=== PATIENT | female | born 1965 | race Caucasian/White ===

== ENCOUNTER 2017-06-13 09:45 | Inpatient (IN) | payer BC ==
[~2017-06-13] VITALS: Ht 182.9 cm; Wt 73.2 kg
[2017-06-13] VITALS (20 sets, daily range): BP systolic 98–115; BP diastolic 59–78; PULSE 69–86; RESP 11–20
[~2017-06-13 09:45] MED LIST: CEFAZOLIN 1 GM INJ ONE; LIDOCAINE 2% (SDV) 5 ML INJ ONE; ROCURONIUM 50 MG INJ ONE
[2017-06-13] MEDS ORDERED: FLUO40CA10 PO (10:14)
[2017-06-13] MEDS ORDERED: GABA300C16 PO (10:14)
[2017-06-13] MEDS ORDERED: GABA100C14 PO (10:15)
[2017-06-13] MEDS ORDERED: GELATIN SIZE 100 SPONGE ONE (11:40)
[2017-06-13] MEDS ORDERED: BUPIVACAINE 0.5%/EPI (SDV) 30 ML INJ ONE (11:40)
[2017-06-13] MEDS ORDERED: BUPIVACAINE 0.25% (MPF) 30 ML INJ ONE (11:40)
[2017-06-13] MEDS ORDERED: SURGIFOAM POWDER 1 GM KIT ONE (11:40)
[2017-06-13] MEDS ORDERED: THROMBIN 5000 UNIT VIAL ONE (11:41)
[2017-06-13] MEDS ORDERED: PROPOFOL 20 ML ONE (12:06)
[2017-06-13] MEDS ORDERED: ROCURONIUM 50 MG INJ ONE (12:07)
[2017-06-13] MEDS ORDERED: FENTAnyl 50 MCG/ML VIAL ONE (12:08)
--- NOTE | 2017-06-13 12:31 | HPN ---
Date/Time of Note Date/Time of Note DATE: 06/13/17 TIME: 12:31 Interval H&P Admission Note Pt. seen H&P reviewed: No system changes SUPRIYA WRAY PA-C Jun 13, 2017 12:31
[2017-06-13] MEDS ORDERED: DIPHENHYDRAMINE 50 MG INJ IV PRN ×2 (13:00→16:30)
[2017-06-13] MEDS: CEFAZOLIN 1 GM/50 ML (PMX) 50 ML IVPB SCH ×2 (13:00→21:05)
[2017-06-13] MEDS ORDERED: NALOXONE (0.4 MG/ML) INJ IV PRN (13:00)
[2017-06-13] MEDS ORDERED: ZOLPIDEM 5 MG TAB PO PRN (13:00)
[2017-06-13] MEDS ORDERED: CEPASTAT LOZENGE MT PRN (13:00)
[2017-06-13] MEDS ORDERED: AL HYDROX/MG HYDROX/SIMETH 30 ML CUP PO PRN (13:00)
[2017-06-13] MEDS ORDERED: BISACODYL 10 MG SUPP PR PRN (13:00)
[2017-06-13] MEDS ORDERED: HYDROmorphONE 0.5 MG/0.5 ML SYG IV PRN (13:00)
[2017-06-13] MEDS ORDERED: morphine 10 MG INJ ONE (13:02)
[2017-06-13] MEDS ORDERED: MIDAZOLAM 1 MG/ML 2 ML INJ ONE (13:20)
[2017-06-13] MEDS ORDERED: POLYMYXIN/BACITRACIN 1L IRRIG IRR ONE (13:31)
[2017-06-13] MEDS ORDERED: DEXAMETHASONE 4 MG/ML 1 ML INJ ONE (13:32)
[2017-06-13] MEDS ORDERED: THROMBIN 5000 UNIT VIAL TOP ONE (13:42)
[2017-06-13] MEDS ORDERED: POLYMYXIN/BACITRACIN 1L IRRIG ONE (15:09)
[2017-06-13] MEDS ORDERED: CA CHLORIDE 10% 10 ML SYRINGE ONE (15:33)
[2017-06-13] MEDS ORDERED: ONDANSETRON 4 MG INJ ONE (15:36)
--- NOTE | 2017-06-13 16:09 | SIPON ---
Date/Time of Note Date/Time of Note DATE: 06/13/17 TIME: 16:08 Operative Report Preoperative Diagnosis L4-5 listhesis and stenosis Postoperative Diagnosis L4-5 listhesis and stenosis Operation/Procedure Performed L4-5 fusion Surgeon see signature line fire assistant Kemal Anesthesia: general Estimated blood loss: 10 - 50 ml's Transfusion Required none Specimen L4-5 disk Grafts/Implants cage and screws Complications none RAGHAVENDRA MARKS MD Jun 13, 2017 16:09
[2017-06-13] MEDS ORDERED: METOCLOPRAMIDE 10 MG INJ IV PRN (16:30)
[2017-06-13] MEDS ORDERED: EPHEDrine SULFATE 50 MG/5 ML SYG IV PRN (16:30)
[2017-06-13] MEDS ORDERED: hydrALAzine 20 MG INJ IV PRN (16:30)
[2017-06-13] MEDS ORDERED: FENTAnyl 50 MCG/ML VIAL IV PRN ×3 (16:30)
[2017-06-13] MEDS ORDERED: KETOROLAC 30 MG INJ IV PRN (16:30)
[2017-06-13] MEDS ORDERED: OXYCODONE/ACETAMINOPHEN (5/325) TAB PO PRN ×2 (16:30)
[2017-06-13] MEDS ORDERED: MEPERIDINE 25 MG INJ IV PRN (16:30)
[2017-06-13] MEDS ORDERED: LABETALOL HCL 20MG INJ IV PRN (16:30)
[2017-06-13] MEDS ORDERED: HYDROmorphONE (0.2 MG/ML) 10ML SYG IV PRN ×3 (16:30)
[2017-06-13] MEDS ORDERED: ONDANSETRON 4 MG INJ IV PRN (16:30)
[2017-06-13] MEDS: HYDROmorphONE 0.2 MG/ML PCA IV SCH ×2 (16:32→23:48)
[2017-06-13 16:36] LABS: ADD UMIC YES; UR ASCORBIC ACID NEGATIVE (NEGATIVE); UR BILIRUBIN (Dip) NEGATIVE (NEGATIVE); UR BLOOD (Dip) NEGATIVE (NEGATIVE); UR CLARITY SLIGHTLY CLOUDY (CLEAR); UR COLOR YELLOW (YELLOW); UR GLUCOSE (Dip) NEGATIVE (NEGATIVE); UR KETONES (Dip) TRACE mg/dL (NEGATIVE); UR LEUKOCYTE ESTERASE (Dip) NEGATIVE Leu/ul (NEGATIVE); UR NITRITE (Dip) NEGATIVE (NEGATIVE); UR RBC 4 /HPF (0-5); UR SPECIFIC GRAVITY (Dip) 1.028 (1.003-1.030); UR TOTAL PROTEIN (Dip) 1+ mg/dl (NEGATIVE); UR UROBILINOGEN (Dip) NEGATIVE (NEGATIVE)
[2017-06-13] MEDS: D5W-0.45 NACL + KCL 20 MEQ 1,000 ML IV SCH (18:43)
[2017-06-13] MEDS: DOCUSATE SODIUM 100 MG CAP PO SCH (21:05)
[2017-06-13] MEDS: GABAPENTIN 300 MG CAP PO SCH (21:05)
--- NOTE | 2017-06-13 23:24 | RADRPT ---
PROCEDURE: Intraoperative fluoroscopy. CLINICAL INDICATION: Intraoperative fluoroscopy during lumbar spine surgery.. TECHNIQUE: 16 spot intraoperative fluoroscopic images were provided. The images were reviewed on a high-resolution PACS workstation. COMPARISON: None available FINDINGS: Multiple spot intraoperative fluoroscopic views were provided during lumbar spine surgery. The imag es demonstrate initial metallic probe at the L4-5 level. Subsequent images demonstrate placement of disc spacer at L4-5 with progressive placement of bilateral pedicle screws at L4 and L5 with associa janette paraspinal fusion rods. The final image demonstrates a probable left ankle, uncertain clinical s ignificance. The total fluoroscopy time was 160.4 seconds. IMPRESSION: 1. Multiple spot intraoperative fluoroscopic views during lumbar fusion at L4-5 were provided. 2. Please note the final image demonstrates fluoroscopic view of and ankle, uncertain ankle exposur e versus prior saved image. 3. Please see operative report of the same day for further information. RPTAT: HGAS .Stefan Soto MD, MD Date Time Electronically viewed and signed by .Stefan Soto MD, on 06/13/2017 23:23 .S/
--- NOTE | 2017-06-13 23:33 | RADRPT ---
PROCEDURE: Intraoperative fluoroscopy. CLINICAL INDICATION: Intraoperative fluoroscopy during lumbar fusion. TECHNIQUE: 3 spot intraoperative fluoroscopic images were provided. The images were reviewed on a high-resolution PACS workstation. COMPARISON: None available FINDINGS: Multiple spot intraoperative fluoroscopic views were provided during lumbar fusion. The images demo nstrate metallic probe at the L4-5 level, with disc spacer in place at L4-5. The total fluoroscopy time was 38.1 seconds. IMPRESSION: 1. Multiple spot intraoperative fluoroscopic views during lumbar fusion were provided. 2. Please see operative report of the same day for further information. RPTAT: HGAS .Stefan Soto MD, MD Date Time Electronically viewed and signed by .Stefan Soto MD, on 06/13/2017 23:33 .S/
--- NOTE | 2017-06-14 01:34 | OPR ---
DATE OF OPERATION: 06/13/2017 PREOPERATIVE DIAGNOSES: 1. L4-L5 retrolisthesis, instability and stenosis with radiculopathy. 2. Dysplastic lamina. POSTOPERATIVE DIAGNOSES: 1. L4-L5 retrolisthesis, instability and stenosis with radiculopathy. 2. Dysplastic lamina. PROCEDURE: 1. Anterior lumbar interbody fusion at L4-L5. 2. Placement of intervertebral biomechanical device at L4-L5. 3. Pedicle screw placement bilaterally at L4 and L5. 4. Posterolateral fusion at L4-L5. 5. Bone marrow aspiration from L4 vertebral body. 6. Use of C-arm fluoroscopy with interpretation without radiologist present. 7. Use of allograft. 8. Intraoperative neuromonitoring (2.5 hours). PRIMARY SURGEON: Domingo Briseno MD ACOUSTIC ENGINEER: Yadira Sommer PA-C NEED FOR WAREHOUSE ORDER PICKER: During this spinal surgical procedure, my cashier assistant was used to retrac t and protect the spinal nerves and dural sac. My cashier assistant also employed the suction catheters to evacuate blood from the surgical field to improve visualization of the neural structures. The shereen tant was medically necessary to facilitate the completion of the surgery in a safe and expeditious violeta. State of [place] regulations, as well as hospital bylaws, preclude the use of non-license d health care personnel, such as operating room technicians, to perform these functions. FINDINGS: Neuromonitoring at the start of the case revealed bilateral L4 amplitude down 40%, left L 5 amplitude was low, right L5 amplitude down 50%, left S1 amplitude down 50%, right S1 amplitude sharmin n 20%. At the end of the case, nerve signals at L4 were down 10%, left L5 remained low, right L5 wa s down 20%, left S1 was down 30%, right S1 was down 10%. The patient had significant retrolisthesis and collapse at the L4-L5 level with stenosis and instability. She had a dysplastic lamina with pa rs fracture at L5. ESTIMATED BLOOD LOSS: Less than 30 mL. DRAINS: None. SPECIMENS: L4-L5 disk. COMPLICATIONS OF PROCEDURES: None. ANESTHESIOLOGIST: Dr. Chang TYPE OF ANESTHESIA: General. IMPLANTS: 1. Emily 8 x 10 x 45 mm PEEK cage. 2. Fibergraft Matrix. 3. Zavation pedicle screws, 5.5 x 45 at L4 and 6.5 x 45 at L5 bilaterally. INDICATIONS FOR PROCEDURE: This is a 51-year-old female with lumbosacral radiculopathy. She has st enosis and retrolisthesis with instability at the L4-L5 level. She had dysplastic lamina with pars fracture at L5. She had failed nonoperative measures, therefore, I recommended proceeding with the above-mentioned surgery, I recommended proceeding with an indirect decompression with the understand ing that if this was insufficient, we could always decompress her posteriorly in the future. DESCRIPTION OF PROCEDURE IN DETAIL: The patient was identified in the [facility] holding [facility] taken to the operating room, where she was successfully placed under general a nesthesia. Neuromonitoring leads were placed, sequential compressive devices were applied. Calvillo c atheter was introduced. Neuromonitoring was utilized during the procedure for 2.5 hours to include SSEP, MEP and EMG. This was performed by [place]. Start time was 1:30, closure time was 4 p.m. The patient was placed in the right lateral decubitus position. Axillary roll was placed. All bony prominences were well padded. The patient was secured to the table with tape and the bed was flexe d to allow access to the spine. The patient was then prepped and draped in usual sterile fashion. I made an incision directly laterally over the L4-L5 level. Incision was taken down and the fascia was opened up, and I finger dissected into the retroperitoneal space. I then placed a dilator onto the L4-L5 disk space through the psoas using neuromonitoring along the way. I then passed a guidewi re, followed by larger dilators. I utilized the C-arm image to confirm placement and place a retrac tor. Once this was done, I opened up the retractor and dissected through the psoas muscle to identi fy the annulus. I probed the area to make sure that there were no neural elements in the field. Ne xt, I performed a radical diskectomy at L4-L5 using an annular knife, followed by curettes, Kerrison punches, pituitary rongeurs and Brandon elevators. I then placed various trials and chose the appropr iate graft height. I then took the PEEK cage within which I placed the allograft, and I impacted th e intervertebral biomechanical device into the L4-L5 level to complete the anterior lumbar interbody fusion at L4-L5. I irrigated the wound and injected Surgifoam for hemostatic purposes. I took fin al AP and lateral images and I was happy with placement of the PEEK cage. I then closed this wound in layers with #1 Vicryl stitch, 2-0 Vicryl stitch and a 4-0 Monocryl closure. Dermabond was then a pplied. The patient was then placed on the operative table in prone position over a Benny frame. All bony prominences were well padded. The back was then reprepped and draped in usual sterile fash ion. I made parasagittal incisions bilaterally over the L4-L5 level. I incised the skin and the do rsal fascia. I then passed Jamshidi needles into the L4 and L5 pedicles bilaterally. Through the l eft vertebral body of L4, I performed a bone marrow aspiration. I then passed guidewires, followed by the appropriate placed screws bilaterally at L4 and L5. Once the pedicle screws were in, I stimu lated each of the screws and there was no evidence of cortical breach. I then placed the appropriat e sized chris with set screws, with tightening per manufacture specifications. The screws were 55 mm in length. I then irrigated the wound. I prepared the posterolateral gutter and placed the allogra ft posterolaterally for posterolateral fusion at L4-L5. At this point, I took final AP and lateral images, I was happy with placement of the hardware and alignment of the spine. I then closed the de ep fascia with #1 Vicryl stitch. I closed subcutaneous tissue with a 2-0 Vicryl stitch. A 4-0 [place] cryl closure was then performed. Dermabond and sterile dressings were then applied. The patient wa s then awakened from anesthesia and taken to recovery room in stable condition. Lap, sponge and ins trument counts were correct x2. There were no apparent complications during the procedure. The patient will be admitted to [facility] for routine postoperative care, to include pain cont rol, neurovascular checks, antibiotics and physical therapy. Dictated By: DOMINGO POSADA/STACIE Conf#: [id number] DID#: [id number]
[2017-06-14] MEDS: ACETAMINOPHEN 325 MG TAB PO PRN ×2 (02:32→19:01)
--- NOTE | 2017-06-14 03:02 | CONS ---
DATE OF ADMISSION: 06/13/2017 DATE OF CONSULTATION: POSTOPERATIVE INTERNAL MEDICINE CONSULTATION Patient had surgery with Dr. Domingo Briseno 06/13/2017. CONSULTATION REQUESTED BY: Dr. Domingo Briseno for medical evaluation and followup of a postoperati ve patient for medical management. Thank you, Dr. Briseno, for allowing us to participate in the care of this patient. HISTORY OF PRESENT ILLNESS: Kyara Hess, a 51-year-old woman with issues with her back, was admit janette and had surgery at L4-L5, lumbar stenosis and spondylolisthesis. Other than her back issues, th e patient is being treated for restless leg syndrome and is currently taking the following medicatio ns: 1. Prozac 40 mg a day. 2. Gabapentin 300 mg at bedtime, 100 mg in the morning. 3. A variety of p.r.n. medications. ALLERGIES: SHE IS NOT ALLERGIC TO ANY MEDICATIONS. PAST SURGICAL HISTORY: Includes sinus surgery and 1 , and claims from a [facility], other than her restless leg syndrome, has been quite healthy and her checkups have all bee n good. SOCIAL HISTORY: The patient is , has 3 children. She does not smoke or drink alcohol; [facility], she does drink coffee and is employed as a mammogram technologist. FAMILY HISTORY: Noncontributory. REVIEW OF SYSTEMS: Other than her back pain and her restless legs, are basically unrevealing. PHYSICAL EXAMINATION: VITAL SIGNS: The patient's blood pressure was 115/78, pulse was 75 and regular, respirations were 1 8, O2 saturation 96%, temperature 98.2. GENERAL: The patient was noted to be a well-developed, well-nourished female. She was alert, coope rative and in no obvious acute distress. HEENT: Unremarkable. LUNGS: Clear. HEART: Revealed a regular rhythm. ABDOMEN: Revealed bowel sounds to be present. The rest of the exam was basically unremarkable. IMPRESSION: 1. Status post lumbar spine surgery at L4-L5. 2. Restless leg syndrome. 3. Stable health. DISCUSSION: Laboratory and other data that was reviewed basically unremarkable. Plan is to resume her preop medications and follow her along with you. Condition postop is stable. Thank you again, Dr. Briseno, for allowing us to participate in the care of this patient. Dictated By: SHAWN MARTINEZ MD SS/STACIE Conf#: [id number] DID#: [id number] CC: DOMINGO BRISENO MD;*End*
[2017-06-14] MEDS ORDERED: CEFAZOLIN 1 GM/50 ML (PMX) 50 ML IVPB SCH ×2 (05:00→14:00)
[2017-06-14 05:10] VITALS: BP 101/56; RESP 16
[2017-06-14 05:41] LABS: BASOPHILS % 0.2 % (0.0-2.0); HEMATOCRIT 33.8 % (37.0-47.0); LYMPHOCYTES # 0.9 10^3/ul (0.8-2.9); MEAN CORPUSCULAR HEMOGLOBIN 30.7 pg (29.0-33.0); MEAN CORPUSCULAR HGB CONC 32.5 g/dl (32.0-37.0); MEAN CORPUSCULAR VOLUME 94.4 fl (82.0-101.0); MEAN PLATELET VOLUME 9.4 fl (7.4-10.4); MONOCYTE # 0.7 10^3/ul (0.3-0.9); MONOCYTES % 7.9 % (0.0-11.0); NEUTROPHIL # 7.6 10^3/ul (1.6-7.5); NEUTROPHILS % 81.5 % (39.0-77.0); PLATELET COUNT 201 10^3/UL (140-415); RED BLOOD COUNT 3.58 10^6/ul (4.20-5.40); RED CELL DISTRIBUTION WIDTH 12.7 % (11.5-14.5); WHITE BLOOD COUNT 9.3 10^3/ul (4.8-10.8)
[2017-06-14] MEDS: D5W-0.45 NACL + KCL 20 MEQ 1,000 ML IV SCH ×3 (06:14→15:04)
[2017-06-14 06:41] LABS: CALCIUM 7.9 mg/dl (8.4-10.2); CREATININE 0.59 mg/dl (0.44-1.00); MAGNESIUM 1.9 mg/dl (1.7-2.5); POTASSIUM 4.4 mmol/L (3.5-5.1)
[2017-06-14 07:00] VITALS: BP 101/63; RESP 18
--- NOTE | 2017-06-14 07:44 | CONS ---
Date/Time of Note Date/Time of Note DATE: 06/14/17 TIME: 07:38 Consult Date/Type/Reason Admit Date/Time Jun 13, 2017 at 09:45 Initial Consult Date 06/13/2017 Type of Consultation: internal medicine Reason for Consultation post-op medical evaluation and f/u Ordering Provider: RAGHAVENDRA MARKS MD Subjective patient alert relatively comfortable complaining of back pain otherwise doing well Objective Vital Signs Date Time Temp Pulse Resp B/P Pulse Ox O2 Delivery O2 Flow Rate FiO2 06/14/17 05:10 98.3 81 16 101/56 99 06/13/17 20:00 Nasal Cannula 2.0 Intake and Output 06/13/17 06/13/17 06/14/17 15:00 23:00 07:00 Intake Total 1350 ml 1750 ml Output Total 600 ml 500 ml Balance 750 ml 1250 ml Exam heent negative lings clear heart regular rhythm abdomen soft Results/Medications Result Diagram: 06/14/17 0425 06/14/17 0425 Results 24 hrs Laboratory Tests Test 06/13/17 16:05 06/14/17 04:25 06/14/17 06:19 Urine Color YELLOW Urine Clarity SLIGHTLY CLOUDY A Urine pH 5.0 Urine Specific [place] 1.028 Urine Ketones TRACE A Urine Nitrite NEGATIVE Urine Bilirubin NEGATIVE Urine Urobilinogen NEGATIVE Urine Leukocyte Esterase NEGATIVE Urine Microscopic RBC 4 Urine Microscopic WBC 3 Urine Hemoglobin NEGATIVE Urine Glucose NEGATIVE Urine Total Protein 1+ H White Blood Count 9.3 Red Blood Count 3.58 L Hemoglobin 11.0 L Hematocrit 33.8 L Mean Corpuscular Volume 94.4 Mean Corpuscular Hemoglobin 30.7 Mean Corpuscular Hemoglobin Concent 32.5 Red Cell Distribution Width 12.7 Platelet Count 201 Mean Platelet Volume 9.4 Neutrophils % 81.5 H Lymphocytes % 10.0 L Monocytes % 7.9 Eosinophils % 0.0 Basophils % 0.2 Nucleated Red Blood Cells % 0.0 Neutrophils # 7.6 H Lymphocytes # 0.9 Monocytes # 0.7 Eosinophils # 0.0 Basophils # 0.0 Nucleated Red Blood Cells # 0.0 Sodium Level 138 Potassium Level 4.4 Chloride Level 105 Carbon Dioxide Level 30 Anion Gap 7 L Blood Urea Nitrogen 14 Creatinine 0.59 Glucose Level 122 Calcium Level 7.9 L Magnesium Level 1.9 Lab Scanned Report LAB Medications Current Medications Potassium Chloride/Dextrose/ Sod Cl (D5-1/2ns + KCl 20 Meq) 1,000 ml @ 100 mls/ hr Q10H IV Last administered on 06/14/17 06:14; Admin Dose 100 MLS/HR; Start 06/13/17 at 12:31 Acetaminophen/ Hydrocodone Bitart ([place] (10/325)) 1 tab Q4H PRN PO PAIN LEVEL 1-5; Start 06/15/17 at 09:30 Acetaminophen/ Hydrocodone Bitart ([place] (10/325)) 2 tab Q4H PRN PO PAIN LEVEL 6-10; Start 06/15/17 at 09:30 Hydromorphone HCl (Dilaudid) 0.2 mg Q1H PRN IV BREAKTHROUGH PAIN; Start at 13:00 Ondansetron HCl (Zofran Inj) 4 mg Q6H PRN IV NAUSEA AND/OR VOMITING; Start at 13:00 Bisacodyl (Dulcolax Supp) 10 mg DAILY PRN [place] CONSTIPATION; Start 06/13/17 at 13:00 Docusate Sodium (Colace) 100 mg BID PO Last administered on 06/13/17 21:05; Admin Dose 100 MG; Start 06/13/17 at 21:00 Al Hydrox/Mg Hydrox/Simethicone (Mag-Al Plus) 15 ml Q6H PRN PO CONSTIPATION/ DYSPEPSIA; Start 06/13/17 at 13:00 Acetaminophen (Tylenol Tab) 650 mg Q4H PRN PO MAYNARD OR TEMP GREATER THAN 101.3F Last administered on 06/14/17 02:32; Admin Dose 650 MG; Start 06/13/17 at 13: 00 Cyclobenzaprine HCl (Flexeril) 10 mg TID PRN PO MUSCLE SPASMS; Start 06/13/17 at 13:00 Phenol (Cepastat Lozenge) 1 lozenge PRN PRN [place] SORE THROAT; Start 06/13/17 at 13:00 Diphenhydramine HCl (Benadryl) 25 mg Q6H PRN IV ITCHING; Start 06/13/17 at 13: 00 Naloxone HCl (Narcan) 0.2 mg Q2M PRN IV RR 8 BREATHS/MIN OR LESS; Start at 13:00 Hydromorphone HCl (Dilaudid ELECTRICAL DRAFTER) ELECTRICAL DRAFTER to be started in PACU Q4PCA IV Last administered on 06/13/17 23:48; Admin Dose 6 MG; Start 06/13/17 at 13:00; Stop 06/15/17 at 10:00 Miscellaneous Information 1. Hold ELECTRICAL DRAFTER at 1,000... ELECTRICAL DRAFTER IV ; Start 06/13/17 at 13 :00 Fluoxetine HCl (Prozac) 40 mg DAILY PO ; Start 06/14/17 at 09:00 Gabapentin (Neurontin) 100 mg QAM PO ; Start 06/14/17 at 09:00 Gabapentin 300 mg 300 mg QHS PO Last administered on 06/13/17 21:05; Admin Dose 300 MG; Start 06/13/17 at 21:00 Cefazolin Sodium (Ancef 1 Gm/50 ml (Pmx)) 50 ml @ 100 mls/hr 14 IVPB ; Start 06/14/17 at 14:00; Stop 06/14/17 at 14:29 Assessment/Plan Chief Complaint/Hosp Course post op lunbar fusion l4-l5 will be getting out of bed today Problems: Additional Assessment/Plan medically stable at this point,will follow with you===thank you SHAWN Valladares MD Jun 14, 2017 07:44
--- NOTE | 2017-06-14 08:48 | PN ---
Date/Time of Note Date/Time of Note DATE: 06/14/17 TIME: 08:47 Assessment/Plan Lines/Catheters IV Catheter Type (from Nrsg): Peripheral IV Calvillo in Place (from Nrsg): Yes Assessment/Plan Assessment/Plan s/p L4-5 fusion POD #1 doing well ambulate continue routine care and pain control Subjective 24 Hr Interval Summary patient doing well comfortable Exam/Review of Systems Vital Signs Vitals Vital Signs Date Time Temp Pulse Resp B/P Pulse Ox O2 Delivery O2 Flow Rate FiO2 06/14/17 07:00 98.1 76 18 101/63 96 06/13/17 20:00 Nasal Cannula 2.0 Intake and Output 06/13/17 06/13/17 06/14/17 15:00 23:00 07:00 Intake Total 1350 ml 1750 ml Output Total 600 ml 500 ml Balance 750 ml 1250 ml Exam Free Text/Dictation left quad strength full NVID Results Result Diagram: 06/14/17 0425 06/14/17 0425 SUPRIYA WRAY PA-C Jun 14, 2017 08:48
[2017-06-14] MEDS: ONDANSETRON 4 MG INJ IV PRN ×2 (09:15→15:04)
[2017-06-14] MEDS: DOCUSATE SODIUM 100 MG CAP PO SCH ×2 (09:16→21:13)
[2017-06-14] MEDS: CYCLOBENZAPRINE 10 MG TAB PO PRN ×2 (09:16→21:13)
[2017-06-14] MEDS: GABAPENTIN 100 MG CAP PO SCH (09:16)
[2017-06-14] MEDS: FLUOXETINE 20 MG CAP PO SCH (09:16)
[2017-06-14 14:00] VITALS: BP 107/67; RESP 18
[2017-06-14] MEDS: HYDROmorphONE 0.2 MG/ML PCA IV SCH (15:03)
[2017-06-14 19:30] VITALS: BP 105/61; RESP 18
[2017-06-14] MEDS: GABAPENTIN 300 MG CAP PO SCH (21:12)
[2017-06-15 00:27] VITALS: BP 109/66; RESP 20
[2017-06-15 04:00] VITALS: BP 125/77; PULSE 87; RESP 16
[2017-06-15] MEDS: D5W-0.45 NACL + KCL 20 MEQ 1,000 ML IV SCH ×2 (04:29→14:31)
[2017-06-15] MEDS: ACETAMINOPHEN 325 MG TAB PO PRN (04:55)
[2017-06-15 05:15] LABS: BASOPHILS % 0.4 % (0.0-2.0); EOSINOPHILS % 0.6 % (0.0-7.0); HEMATOCRIT 31.2 % (37.0-47.0); HEMOGLOBIN 10.1 g/dl (12.0-16.0); LYMPHOCYTES # 1.1 10^3/ul (0.8-2.9); LYMPHOCYTES % 16.5 % (15.0-51.0); MEAN CORPUSCULAR HEMOGLOBIN 30.3 pg (29.0-33.0); MEAN CORPUSCULAR HGB CONC 32.4 g/dl (32.0-37.0); MEAN CORPUSCULAR VOLUME 93.7 fl (82.0-101.0); MEAN PLATELET VOLUME 9.4 fl (7.4-10.4); MONOCYTE # 0.5 10^3/ul (0.3-0.9); MONOCYTES % 7.6 % (0.0-11.0); NEUTROPHIL # 5.1 10^3/ul (1.6-7.5); NEUTROPHILS % 74.8 % (39.0-77.0); PLATELET COUNT 176 10^3/UL (140-415); RED BLOOD COUNT 3.33 10^6/ul (4.20-5.40); WHITE BLOOD COUNT 6.8 10^3/ul (4.8-10.8)
[2017-06-15 06:04] LABS: CALCIUM 7.9 mg/dl (8.4-10.2); CREATININE 0.59 mg/dl (0.44-1.00)
[2017-06-15 07:00] VITALS: BP 112/71; RESP 18
[2017-06-15] MEDS: ONDANSETRON 4 MG INJ IV PRN (07:48)
--- NOTE | 2017-06-15 07:51 | CONS ---
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 Objective Vital Signs Date Time Temp Pulse Resp B/P Pulse Ox O2 Delivery O2 Flow Rate FiO2 06/15/17 06:26 99.2 06/15/17 05:00 16 06/15/17 04:00 87 125/77 92 Room Air 06/13/17 20:00 2.0 Intake and Output 06/14/17 06/14/17 06/15/17 15:00 23:00 07:00 Intake Total 1000 ml 1500 ml 1700 ml Output Total 2000 ml 1500 ml Balance 1000 ml -500 ml 200 ml Exam vss heent unremarkable lungs clear heart regular rhythm abdomen soft Results/Medications Result Diagram: 06/15/17 0443 06/15/17 0443 Results 24 hrs Laboratory Tests Test 06/15/17 04:43 White Blood Count 6.8 # Red Blood Count 3.33 L Hemoglobin 10.1 L Hematocrit 31.2 L Mean Corpuscular Volume 93.7 Mean Corpuscular Hemoglobin 30.3 Mean Corpuscular Hemoglobin Concent 32.4 Red Cell Distribution Width 13.0 Platelet Count 176 Mean Platelet Volume 9.4 Neutrophils % 74.8 Lymphocytes % 16.5 Monocytes % 7.6 Eosinophils % 0.6 Basophils % 0.4 Nucleated Red Blood Cells % 0.0 Neutrophils # 5.1 Lymphocytes # 1.1 Monocytes # 0.5 Eosinophils # 0.0 Basophils # 0.0 Nucleated Red Blood Cells # 0.0 Sodium Level 140 Potassium Level 4.0 Chloride Level 105 Carbon Dioxide Level 30 Anion Gap 9 Blood Urea Nitrogen 13 Creatinine 0.59 Glucose Level 116 Calcium Level 7.9 L Magnesium Level 2.0 Medications Current Medications Potassium Chloride/Dextrose/ Sod Cl (D5-1/2ns + KCl 20 Meq) 1,000 ml @ 100 mls/ hr Q10H IV Last administered on 06/14/17t 15:04; Admin Dose 100 MLS/HR; Start 06/13/17 at 12:31 Acetaminophen/ Hydrocodone Bitart ([place] (10325)) 1 tab Q4H PRN PO PAIN LEVEL 1-5; Start 06/15/17 at 09:30 Acetaminophen/ Hydrocodone Bitart ([place] (10325)) 2 tab Q4H PRN PO PAIN LEVEL 6-10; Start 06/15/17 at 09:30 Hydromorphone HCl (Dilaudid) 0.2 mg Q1H PRN IV BREAKTHROUGH PAIN; Start at 13:00 Ondansetron HCl (Zofran Inj) 4 mg Q6H PRN IV NAUSEA AND/OR VOMITING Last administered on 06/14/17 15:04; Admin Dose 4 MG; Start 06/13/17 at 13:00 Bisacodyl (Dulcolax Supp) 10 mg DAILY PRN [place] CONSTIPATION; Start 06/13/17 at 13:00 Docusate Sodium (Colace) 100 mg BID PO Last administered on 06/14/17 21:13; Admin Dose 100 MG; Start 06/13/17 at 21:00 Al Hydrox/Mg Hydrox/Simethicone (Mag-Al Plus) 15 ml Q6H PRN PO CONSTIPATION/ DYSPEPSIA; Start 06/13/17 at 13:00 Acetaminophen (Tylenol Tab) 650 mg Q4H PRN PO MAYNARD OR TEMP GREATER THAN 101.3F Last administered on 06/15/17 04:55; Admin Dose 650 MG; Start 06/13/17 at 13: 00 Cyclobenzaprine HCl (Flexeril) 10 mg TID PRN PO MUSCLE SPASMS Last administered on 06/14/17 21:13; Admin Dose 10 MG; Start 06/13/17 at 13:00 Phenol (Cepastat Lozenge) 1 lozenge PRN PRN [place] SORE THROAT; Start 06/13/17 at 13:00 Diphenhydramine HCl (Benadryl) 25 mg Q6H PRN IV ITCHING; Start 06/13/17 at 13: 00 Naloxone HCl (Narcan) 0.2 mg Q2M PRN IV RR 8 BREATHS/MIN OR LESS; Start at 13:00 Hydromorphone HCl (Dilaudid LENS BLOCKER) LENS BLOCKER to be started in PACU Q4PCA IV Last administered on 06/14/17 15:03; Admin Dose 6 MG; Start 06/13/17 at 13:00; Stop 06/15/17 at 10:00 Miscellaneous Information 1. Hold LENS BLOCKER at 1,000... 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 will improve. Hb 10.1 hct 31.2 ,chem 7 ok. continue present Rx per thank you SHAWN Jovel MD Jun 15, 2017 07:51
[2017-06-15] MEDS: CYCLOBENZAPRINE 10 MG TAB PO PRN (07:59)
[2017-06-15] MEDS ORDERED: HYDROCODONE/APAP (10/325) TAB PO PRN (08:30)
[2017-06-15] MEDS: DOCUSATE SODIUM 100 MG CAP PO SCH (09:25)
[2017-06-15] MEDS: GABAPENTIN 100 MG CAP PO SCH (09:26)
[2017-06-15] MEDS: FLUOXETINE 20 MG CAP PO SCH (09:26)
[2017-06-15] MEDS: HYDROCODONE/APAP (10/325) TAB PO PRN ×2 (09:26→15:42)
--- NOTE | 2017-06-15 12:54 | DS ---
Date/Time of Note Date/Time of Note DATE: 06/15/17 TIME: 12:54 Discharge Summary Admission/Discharge Info Admit Date/Time Jun 13, 2017 at 09:45 Discharge Date/Time 06/15 Discharge Diagnosis lumbar spondylolisthesis Patient Condition: Good Procedures lumbar fusion Hx of Present Illness back and leg pain Hospital Course the patient was admitted to the [facility] after undergoing the above procedure. The post-op course was uncomplicated. By post-op day #2 the patient was doing well and deemed stable for discharge with f/u arranged with the undersigned. Home Meds Reported Medications Gabapentin* (Gabapentin*) 100 Mg Capsule, 100 MG PO QAM, #90 CAP 06/13/17 Gabapentin* (Gabapentin*) 300 Mg Capsule, 300 MG PO QHS, #60 CAP 06/13/17 Fluoxetine Hcl* (Prozac*) 40 Mg Capsule, 40 MG PO DAILY, CAP 06/13/17 Primary Care Provider Not On Staff Doctor Pending Labs Laboratory Tests Test 06/15/17 04:43 White Blood Count 6.810^3/ul (4.8-10.8) Red Blood Count 3.3310^6/ul (4.20-5.40) Hemoglobin 10.1g/dl (12.0-16.0) Hematocrit 31.2% (37.0-47.0) Mean Corpuscular Volume 93.7fl (82.0-101.0) Mean Corpuscular Hemoglobin 30.3pg (29.0-33.0) Mean Corpuscular Hemoglobin Concent 32.4g/dl (32.0-37.0) Red Cell Distribution Width 13.0% (11.5-14.5) Platelet Count 91760^3/UL (140-415) Mean Platelet Volume 9.4fl (7.4-10.4) Neutrophils % 74.8% (39.0-77.0) Lymphocytes % 16.5% (15.0-51.0) Monocytes % 7.6% (0.0-11.0) Eosinophils % 0.6% (0.0-7.0) Basophils % 0.4% (0.0-2.0) Nucleated Red Blood Cells % 0.0/100WBC (0.0-0.0) Neutrophils # 5.110^3/ul (1.6-7.5) Lymphocytes # 1.110^3/ul (0.8-2.9) Monocytes # 0.510^3/ul (0.3-0.9) Eosinophils # 0.010^3/ul (0.0-0.5) Basophils # 0.010^3/ul (0.0-0.1) Nucleated Red Blood Cells # 0.010^3/ul (0.0-0.0) Sodium Level 140mmol/L (135-144) Potassium Level 4.0mmol/L (3.5-5.1) Chloride Level 105mmol/L (97-110) Carbon Dioxide Level 30mmol/L (21-31) Anion Gap 9 (8-16) Blood Urea Nitrogen 13mg/dl (7-20) Creatinine 0.59mg/dl (0.44-1.00) Glucose Level 116mg/dl (70-220) Calcium Level 7.9mg/dl (8.4-10.2) Magnesium Level 2.0mg/dl (1.7-2.5) RAGHAVENDRA MARKS MD Jun 15, 2017 12:54
[2017-06-15 14:00] VITALS: BP 103/56; RESP 18
== END 2017-06-15 15:50 | disposition home or self-care (01) | DRG 455 ==
LOC: REC 09:45 → MS1 17:35
PROVIDERS: ADMIT Specialist; ATTEND Specialist
PROC: 0SG00K1 Fusion of Lumbar Vertebral Joint with Nonautologous Tissue Substitute, Posterior Approach, Posterior Column, Open Approach (ICD-10-PCS; 2017-06-13)
PROC: 0ST20ZZ Resection of Lumbar Vertebral Disc, Open Approach (ICD-10-PCS; 2017-06-13)
PROC: 07DS3ZZ Extraction of Vertebral Bone Marrow, Percutaneous Approach (ICD-10-PCS; 2017-06-13)
PROC: 0SG00A0 Fusion of Lumbar Vertebral Joint with Interbody Fusion Device, Anterior Approach, Anterior Column, Open Approach (ICD-10-PCS; principal; 2017-06-13 12:00)
DX: M43.16 Spondylolisthesis, lumbar region (principal); G25.81 Restless legs syndrome; M48.061 Spinal stenosis, lumbar region without neurogenic claudication; M54.16 Radiculopathy, lumbar region; Z85.828 Personal history of other malignant neoplasm of skin
CPT/HCPCS: 72020; 72114; 80048; 81001; 83735; 85025; 86850; 86900; 86901; 86920; 86999; 87086; 97116; 97161; 97530; J0690; J1100; J1170; J2250; J2270; J2405; J3010; J3480